=== PATIENT | female | born 1995 ===

== ENCOUNTER 2016-09-10 17:05 | Emergency (ER) | payer BC, OTHER ==
[~2016-09-10] VITALS: Ht 162.6 cm; Wt 49.4 kg
[2016-09-10] MEDS ORDERED: LEVO1TAB64 PO (17:19)
[2016-09-10] MEDS ORDERED: DICYCLOMINE HCL 20 MG TABLET PO STA (17:25)
[2016-09-10] MEDS ORDERED: MAG HYDROX/AL HYDROX/SIMETH 30 ML LIQUID UDC PO ONE (17:30)
[2016-09-10] MEDS ORDERED: FAMOTIDINE 20 MG TABLET PO ONE (17:30)
--- NOTE | 2016-09-10 17:38 | NUR ---
PT IS IN ROOM #1B. DR MARTINEZ EVALUATED THE PT.
[2016-09-10] MEDS ORDERED: MAG HYDROX/AL HYDROX/SIMETH 30 ML LIQUID UDC ONE (17:46)
[2016-09-10] MEDS ORDERED: FAMOTIDINE 20 MG TABLET ONE (17:46)
[2016-09-10] MEDS ORDERED: DICYCLOMINE HCL 10 MG/5 ML UDC LIQ ONE (17:47)
[2016-09-10 18:23] VITALS: BP 125/71
--- NOTE | 2016-09-10 18:23 | NUR ---
PT WAS D/C TO HOME. D/C INSTRUCTIONS GIVEN TO THE PT.
== END 2016-09-10 18:24 | disposition home or self-care (01) ==
LOC: ER 17:06
DX: K21.9 Gastro-esophageal reflux disease without esophagitis (principal)
CPT/HCPCS: A4663